=== PATIENT | female | born 1990 | race Caucasian/White ===

== ENCOUNTER 2018-11-19 07:09 | Day surgery (SDC) | payer OTHER ==
[2018-11-13 10:30] VITALS: BMI 30.9
--- NOTE | 2018-11-18 17:28 | P.HPOB ---
History of Present Illness H&P Date: 11/18/18 Chief Complaint: GERALDO 2 28 year old presents for loop electrocautery excision procedure. 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 Review of Systems All systems: negative Constitutional: Denies chills, Denies fever Eyes: denies blurred vision, denies pain Ears, nose, mouth and throat: Denies headache, Denies sore throat Cardiovascular: Denies chest pain, Denies shortness of breath Respiratory: Denies cough Gastrointestinal: Denies abdominal pain, Denies diarrhea, Denies nausea, Denies vomiting Genitourinary: Denies dysuria, Denies hematuria Musculoskeletal: Denies myalgias Integumentary: Denies pruritus, Denies rash Neurological: Denies numbness, Denies weakness Psychiatric: Denies anxiety, Denies depression Endocrine: Denies fatigue, Denies weight change Past Medical History Additional Past Medical History / Comment(s): GERALDO-2 History of Any Multi-Drug Resistant Organisms: None Reported Additional Past Surgical History / Comment(s): WISDOM TEETH REMOVED UNDER ANESTHESIA Past Anesthesia/Blood Transfusion Reactions: Motion Sickness Past Psychological History: Anxiety Smoking Status: Former smoker Past Drug Use History: None Reported - Past Family History Mother Family Medical History: No Reported History Medications and Allergies Home Medications Medication Instructions Recorded Confirmed Type Citalopram Hydrobromide [CeleXA] 20 mg PO DAILY 11/13/18 11/13/18 History Allergies Allergy/AdvReac Type Severity Reaction Status Date / Time No Known Allergies Allergy Verified 11/13/18 10:25 Exam Osteopathic Statement: *. No significant issues noted on an osteopathic structural exam other than those noted in the History and Physical/Consult. Heart: Regular rate and rhythm Lungs: Clear to auscultation bilaterally Abdomen: Soft, nontender Extremities: Negative Homans sign Assessment and Plan (1) GERALDO II (cervical intraepithelial neoplasia II) Narrative/Plan: Discrepancy between Pap and colposcopy, indication for LEEP Status: Acute Code(s): N87.1 - MODERATE CERVICAL DYSPLASIA SNOMED Code(s): 885918230 Plan: 1. Loop electrocautery excision procedure
[~2018-11-19 07:09] MED LIST: DEXAMETHASONE SOD PHOSPHATE 10 MG/ML 1 ML VIAL IV ONE; HYDROmorphone 0.5 MG/0.5 ML SYRINGE IVP PRN; LACTATED RINGERS 1,000 ML IV SCH; MIDAZOLAM 2 MG/2 ML VIAL IV PRN; ONDANSETRON 4 MG/2 ML VIAL IVP ONE; Pre Op ABX Message 1 EACH MISC MISCELLANE ONE
[2018-11-19 07:27] VITALS: TEMP 97
[2018-11-19] MEDS ORDERED: LIDOCAINE 1% 20 ML VIAL (10MG/ML) FOR IV START INTRADERMA ONE (07:30)
[2018-11-19] MEDS ORDERED: SCOPOLAMINE 1.5MG/72HR PATCH TRANSDERM ONE (07:45)
[2018-11-19] MEDS ORDERED: LIDOCAINE 1% INJ 10MG/ML (20 ML MDV) ONE (08:30)
[2018-11-19] MEDS ORDERED: KETOROLAC 30 MG/ML 1 ML VIAL ONE (08:30)
[2018-11-19] MEDS ORDERED: MIDAZOLAM 2 MG/2 ML VIAL ONE (08:30)
[2018-11-19] MEDS ORDERED: PROPOFOL 10 MG/ML 20 ML VIAL IV ONE (08:30)
[2018-11-19] MEDS ORDERED: fentaNYL (PF) 50 MCG/ML 2 ML AMP ONE (08:30)
[2018-11-19] MEDS ORDERED: FERRIC SUBSULFATE (MONSELS) JAR TOPICAL ONE (09:01)
--- NOTE | 2018-11-19 09:42 | P.OP ---
Date of Procedure: 11/19/18 Preoperative Diagnosis: 1. CIN2 Postoperative Diagnosis: 1. GERALDO 2 Procedure(s) Performed: Loop electrocautery excision procedure Anesthesia: MAC Surgeon: Vannessa Washington Estimated Blood Loss (ml): 20 IV fluids (ml): 300 Urine output (ml): 40 Pathology: other (Cervical conein 4 parts) Condition: stable Disposition: PACU Description of Procedure: Patient is taken the operating room and general anesthesia was obtained without difficulty. She is prepped and draped in normal sterile fashion dorsal lithotomy position, legs placed in candycane stirrups. Bladder was drained of all urine. The coated bivalve speculum was placed in the vagina. IUD strings were easily seen. The strings were pushed towards the anterior lip of the cervix as a took a loop cautery and biopsied the posterior lip. The strings were then removed to the posterior position and I took a biopsy of the anterior lip using the loop cautery. The ball tip cautery was used to obtain excellent hemostasis. Monsel's was also placed. Patient tolerated procedure well, sponge and instrument counts correct 2. She was taken to recovery in stable condition.
[2018-11-19 09:48] VITALS: RESP 16
[2018-11-19 10:23] VITALS: BP 125/88; PULSE 61
== END 2018-11-19 10:56 | disposition home or self-care (01) ==
LOC: OR 07:09
PROVIDERS: ATTEND Obstetrics & Gynecology
DX: N87.1 Moderate cervical dysplasia (principal); F41.9 Anxiety disorder, unspecified; Z87.891 Personal history of nicotine dependence; Z79.899 Other long term (current) drug therapy; Z98.818 Other dental procedure status
CPT/HCPCS: 57522; 81025; 88307; J2250; J1100; J2405; J2001; J3010; J1885; J2704

== ENCOUNTER 2019-04-05 20:20 | Emergency (ER) | payer OTHER ==
[2019-04-05 21:28] LABS: INR 0.9 (<1.2); Prothrombin Time 9.9 sec (9.0-12.0)
[2019-04-05 21:29] LABS: Basophils % (A) 0 %; Eosinophils # (A) 0.1 k/uL (0-0.7); Eosinophils % (A) 2 %; HCT 42.1 % (34.0-46.0); HGB 14.2 gm/dL (11.4-16.0); Lymphocytes # (A) 2.5 k/uL (1.0-4.8); Lymphocytes % (A) 36 %; MCH 30.3 pg (25.0-35.0); MCHC 33.6 g/dL (31.0-37.0); MCV 90.3 fL (80.0-100.0); Mean Platelet Volume 7.1; Monocytes # (A) 0.3 k/uL (0-1.0); Monocytes % (A) 5 %; Neutrophils # (A) 3.9 k/uL (1.3-7.7); Neutrophils % (A) 56 %; Partial Thromboplastin Time 25.8 sec (22.0-30.0); Platelet Count 262 k/uL (150-450); RBC 4.67 m/uL (3.80-5.40); RDW 12.2 % (11.5-15.5)
[2019-04-05 21:52] LABS: African American GFR (CKD) >90 (>60 ml/min/1.73 sqM); Anion Gap 7 mmol/L; Blood Urea Nitrogen 14 mg/dL (7-17); Calcium 9.4 mg/dL (8.4-10.2); Carbon Dioxide 26 mmol/L (22-30); Chloride 106 mmol/L (98-107); Glucose 126 mg/dL (74-99); Non-African American GFR(CKD) >90 (>60 ml/min/1.73 sqM); Potassium 3.9 mmol/L (3.5-5.1); Sodium 139 mmol/L (137-145)
--- NOTE | 2019-04-05 21:53 | XR ---
EXAMINATION TYPE: XR chest 2V DATE OF EXAM: 04/05/2019 COMPARISON: NONE HISTORY: Short of breath TECHNIQUE: 2 views FINDINGS: Heart and mediastinum are normal. Lungs are clear. Diaphragm is normal. Bony thorax appears normal. IMPRESSION: Normal chest.
--- NOTE | 2019-04-05 23:23 | ED ---
Chest Pain HPI - General Chief Complaint: Chest Pain Stated Complaint: chest pain Time Seen by Provider: 04/05/19 22:26 Source: patient Mode of arrival: ambulatory - History of Present Illness Initial Comments: 28-year-old female presenting for fluttering sensation in chest x 4 days. Patient states since Friday she has felt an odd feeling in her chest she states is fluttering sensation. Patient denies any pain she states is more of a discomfort. Patient denies any nausea vomiting epigastric pain arm or jaw pain. Patient denies any back pain. Denies a ripping tearing sensations. Patient denies any history of premature CAD with the family. Patient states she feels slightly short of breath. Patient denies unilateral leg swelling history of DVT or point embolism denies hemoptysis. Patient denies any history of cancer, denies denies any recent fractures or surgical procedures. Patient denies any recent travel or immobilization. Patient denies diabetes high blood pressure smoking history remaining review of systems negative upon arrival patient appears well besides acute distress. - Related Data Home Medications Medication Instructions Recorded Confirmed Citalopram Hydrobromide [CeleXA] 20 mg PO DAILY 11/13/18 11/19/18 Previous Rx's Medication Instructions Recorded Acetaminophen-Codeine 300-30mg 2 tab PO Q6H PRN #10 tablet 11/19/18 [Tylenol #3] Ibuprofen [Motrin] 600 mg PO Q6HR PRN #30 tab 11/19/18 Allergies Allergy/AdvReac Type Severity Reaction Status Date / Time No Known Allergies Allergy Verified 04/05/19 20:51 Review of Systems ROS Statement: Those systems with pertinent positive or pertinent negative responses have been documented in the HPI. ROS Other: All systems not noted in ROS Statement are negative. Past Medical History Additional Past Medical History / Comment(s): GERALDO-2 History of Any Multi-Drug Resistant Organisms: None Reported Additional Past Surgical History / Comment(s): WISDOM TEETH REMOVED UNDER ANESTHESIA, LEEP procedure (scrapped cancerous cells of her cervis ) Past Anesthesia/Blood Transfusion Reactions: Motion Sickness Past Psychological History: Anxiety Smoking Status: Former smoker Past Alcohol Use History: None Reported, Rare Past Drug Use History: None Reported - Past Family History Mother Family Medical History: No Reported History General Exam - General Exam Comments Initial Comments: General: The patient is awake and alert, in no distress, and does not appear ac utely ill. Eye: +3 mm pupils are equal, round and reactive to light, extra-ocular movements are intact. No nystagmus. There is normal conjunctiva bilaterally. No signs of icterus. Ears, nose, mouth and throat: There are moist mucous membranes and no oral lesions. Neck: The neck is supple, there is no tenderness or JVD. Cardiovascular: There is a regular rate and rhythm. No murmur, rub or gallop is appreciated. Respiratory: Lungs are clear to auscultation, respirations are non-labored, breath sounds are equal. No wheezes, stridor, rales, or rhonchi. Gastrointestinal: Soft, non-distended, non-tender abdomen without masses or org anomegaly noted. There is no rebound or guarding present. Musculoskeletal: Normal ROM, no tenderness. Strength 5/5. Sensation intact. Pulses equal bilaterally 2+. Neurological: A&O x 3. CN II-XII intact grossly, There are no obvious motor or sensory deficits. Coordination appears grossly intact. Speech is normal. Skin: Skin is warm and dry and no rashes or lesions are noted. No LE edema. Psychiatric: Cooperative, appropriate mood & affect, normal judgment. Course Vital Signs 04/05/19 04/05/19 04/05/19 20:45 21:51 23:37 Temperature 98.6 F 98.1 F Pulse Rate 88 79 Respiratory 19 20 16 Rate Blood Pressure 129/86 121/71 O2 Sat by Pulse 99 99 Oximetry Chest Pain MDM - MDM Ventricular rate 97 beats minute, UT interval 154 ms, QS duration 82 ms, QT/QTC 358/454ms Thisnormal sinus rhythm. There is no ST elevation or depression. There is artifact noted otherwise no acute findings EKG personally reviewed and interpreted as follows reviewed them attending provider 28-year-old female presenting for fluttering sensation chest as well as discomfort ongoing 2 days. Patient has no risk factors aside from obesity. No known familial history. Patient's EKG findings. Patient had initial troponin negative. Patient perked negative. Patient refused a second troponin. She appears well stable vital signs are within acceptable limits discussed the case with attending provider were agreeable to discharge with close outpatient primary care follow-up and return parameters as discussed patient does have history of anxiety and states that she did try to take Ativan for the symptoms. Disposition Clinical Impression: Palpitations Disposition: HOME SELF-CARE Condition: Good Instructions (If sedation given, give patient instructions): Heart Palpitations (ED) Additional Instructions: Please use medication as discussed. Please follow-up with family doctor in the next 2 days, recommend outpatient echo/holter monitor. Please return to emergency room if the symptoms increase or worsen or for any other concerns. Is patient prescribed a controlled substance at d/c from ED?: No Referrals: None,Stated [Primary Care Provider] - 1-2 days Time of Disposition: 23:47
[2019-04-05 23:38] VITALS: BP 121/71; PULSE 79; RESP 16; TEMP 98.1
== END 2019-04-05 23:50 | disposition home or self-care (01) ==
LOC: EC 20:20
DX: R00.2 Palpitations (principal); R07.9 Chest pain, unspecified; F41.9 Anxiety disorder, unspecified; Z79.899 Other long term (current) drug therapy; Z87.891 Personal history of nicotine dependence
CPT/HCPCS: 36415; 71046; 80048; 84484; 85025; 85610; 85730; 93005; 99285

== ENCOUNTER → 2020-09-22 | Outpatient (CLI) | payer BC ==
--- NOTE | 2020-09-22 15:48 | XR ---
EXAMINATION TYPE: XR Hip Complete RT DATE OF EXAM: 09/22/2020 CLINICAL HISTORY: Fall 4 months ago now with pain TECHNIQUE: AP and frogleg views of the right hip are obtained. COMPARISON: None. FINDINGS: There is no acute fracture/dislocation evident in the right hip. There are degenerative ch anges of the right hip with osteophytosis. IMPRESSION: There is no acute fracture or dislocation in the right hip. Degenerative changes, as not ed.
--- NOTE | 2020-09-22 15:49 | XR ---
EXAMINATION TYPE: XR lumbar spine 2 or 3V DATE OF EXAM: 09/22/2020 CLINICAL HISTORY: TECHNIQUE: Frontal, lateral, and coned-down images of the lumbar spine are obtained. COMPARISON: None FINDINGS: There is sacralization of L5. Vertebral body heights are preserved. Alignment is anatomic. No significant degenerative changes. IMPRESSION: L5 sacralization.
== END | disposition home or self-care (01) ==
LOC: RADXRMAIN 15:13
PROVIDERS: ATTEND Nurse Practitioner Family
DX: M16.11 Unilateral primary osteoarthritis, right hip (principal); Q76.49 Other congenital malformations of spine, not associated with scoliosis
CPT/HCPCS: 72100; 73502

== ENCOUNTER → 2020-09-26 | Outpatient (CLI) | payer BC ==
--- NOTE | 2020-09-26 16:33 | XR ---
Cervical spine HISTORY: Fall 4 months prior, pain 3 views of the cervical spine There is reversal the normal cervical lordosis which may be due to muscle spasm. Some mild loss of di sc height present at C5-6. Prevertebral soft tissues are normal. No fracture or subluxation. Odontoid view is limited. IMPRESSION: Mild degenerative disc disease. Limitations as described.
--- NOTE | 2020-09-26 16:35 | XR ---
Thoracic spine HISTORY: M54.6 M25.511 2views of the thoracic spine on 3 images There is a slight dextroscoliosis centered at the thoracic spine. Thoracic vertebral bodies show pres erved height and bone mineralization. Mild loss of disc height at intervertebral levels in the midtho racic spine. There is mild spondylosis. No fracture or subluxation. IMPRESSION: Mild degenerative disc disease. Spinal curvature.
--- NOTE | 2020-09-26 16:37 | XR ---
Right shoulder HISTORY: M54.6 M25.511 3 views the right shoulder There is acromioclavicular joint arthropathy. Right lung apex as visualized is normal. Possible nodes present within the humeral head. There is a distal acromial spur. No fracture or dislocation. IMPRESSION: Correlate for impingement.
== END | disposition home or self-care (01) ==
LOC: RADXRMAIN 15:28
PROVIDERS: ATTEND Nurse Practitioner Family
DX: M50.30 Other cervical disc degeneration, unspecified cervical region (principal); M51.34 Other intervertebral disc degeneration, thoracic region; M43.9 Deforming dorsopathy, unspecified; M25.511 Pain in right shoulder
CPT/HCPCS: 72040; 72070

== ENCOUNTER → 2020-10-25 | Outpatient (CLI) | payer BC | END | disposition home or self-care (01) | LOC: RADMRIMAIN 07:05 | PROVIDERS: ATTEND Family Medicine | DX: Z53.9 Procedure and treatment not carried out, unspecified reason (principal) ==

== ENCOUNTER → 2021-08-10 | Outpatient (CLI) | payer OTHER ==
--- NOTE | 2021-08-10 11:34 | XR ---
Right ankle and right foot HISTORY: S73.101A S83.91XA S93.401A M79.661 S93.601A 3 views of the right foot and 3 views the right ankle Bone mineralization, joint spaces and alignment are maintained. Mild soft tissue swelling is noted la terally at the ankle. IMPRESSION: No fracture or dislocation of the right ankle or foot
--- NOTE | 2021-08-10 11:35 | XR ---
Right leg and right knee history: S73.101A S83.91XA S93.401A M79.661 S93.601A Frontal lateral views of the right leg, 3 views of the right knee submitted Bone mineralization, joint spaces and alignment are maintained. There is possibly minimal knee joint effusion. IMPRESSION: No evident fracture or dislocation of the right knee or leg.
--- NOTE | 2021-08-10 11:41 | XR ---
Right hip HISTORY: S73.101A S83.91XA S93.401A M79.661 S93.601A 2 views of the right hip, correlation prior exam 09/22/2020 Hypertrophic change present at the acetabulum is noted, there is no fracture or dislocation. impression: Correlate for femoral acetabular impingement.
== END | disposition home or self-care (01) ==
LOC: RADXRMAIN 10:46
PROVIDERS: ATTEND Emergency Medicine
DX: S73.101A Unspecified sprain of right hip, initial encounter (principal); S83.91XA Sprain of unspecified site of right knee, initial encounter; S93.401A Sprain of unspecified ligament of right ankle, initial encounter; S93.601A Unspecified sprain of right foot, initial encounter; M79.661 Pain in right lower leg; X58.XXXA Exposure to other specified factors, initial encounter
CPT/HCPCS: 73502